=== PATIENT | male | born 1990 | race Native Hawaiian/Other Pacific Islander ===

== ENCOUNTER 2022-06-26 09:35 | Outpatient (CLI) | payer BC ==
[2022-06-26 09:55] LABS: POTASSIUM 3.5 mmol/L (3.6-5.2)
== END 2022-06-26 19:31 | disposition home or self-care (01) ==
LOC: LABW 09:35
PROVIDERS: ATTEND Nurse Practitioner Family
DX: E87.5 Hyperkalemia (principal)
CPT/HCPCS: 36415; 80053